=== PATIENT | female | born 1945 | race Caucasian/White ===

== ENCOUNTER 2020-05-18 12:15 | Observation (INO) ==
[2020-05-18] MEDS ORDERED: *HR* OxyCODONE/APAP 5/325 TABLET PO ONE (12:41)
[2020-05-18] MEDS ORDERED: *HR* LORazepam 0.5 MG TABLET PO PRN (14:19)
[2020-05-18] MEDS ORDERED: Naloxone 0.4 MG/ML INJ IVP PRN (14:19)
[2020-05-18 14:31] LABS: Basophils # 0.1 K/mcL (0.0-0.2); Basophils % 0.8 %; Eosinophils # 0.3 K/mcL (0.0-0.6); Eosinophils % 5.1 %; Hematocrit 44.7 % (35.3-44.9); Hemoglobin 14.2 g/dL (11.5-15.4); Immature Granulocytes % 0.5 % (0-4); Lymphocytes # 0.9 K/mcL (0.6-4.6); Mean Corpuscular HGB Conc 31.8 g/dL (31.6-35.5); Mean Corpuscular Hemoglobin 27.6 pg (28.0-33.3); Mean Corpuscular Volume 86.8 fL (83.0-100.0); Mean Platelet Volume 9.5 fL (9.4-12.4); Monocytes # 0.4 K/mcL (0.0-1.3); Monocytes % 6.4 %; Neutrophils # 4.7 K/mcL (1.6-8.9); Platelet Count 216 K/mcL (140-400); Red Blood Count 5.15 M/mcL (3.82-4.97); Red Cell Distribution Width 13.4 % (11.5-14.5); Segmented Neutrophils % 73.2 %; White Blood Count 6.4 K/mcL (4.3-11.1)
[2020-05-18] MEDS ORDERED: Dextrose Gel 15 GM/37.5 ML TUBE PO PRN ×2 (14:34)
[2020-05-18] MEDS ORDERED: *HR* Dextrose 50 % in Water (Vial) 50 ML VIAL IVP PRN (14:34)
[2020-05-18] MEDS ORDERED: D5% in Water 1,000 ML IVC PRN (14:34)
[2020-05-18 14:54] LABS: Prothrombin Time 11.1 Seconds (9.4-12.1)
[2020-05-18 14:56] LABS: BUN/Creatinine Ratio 24 (6-26); Blood Urea Nitrogen 18 mg/dL (8-23); Calcium 9.6 mg/dL (8.6-10.3); Carbon Dioxide 28 mEq/L (23-29); Chloride 102 mEq/L (98-107); Glucose 115 mg/dL (70-105); Osmolality,Calculated 289 (280-300); Potassium 4.1 mEq/L (3.5-5.1); Sodium 138 mEq/L (136-145); eGFR For African Americans > 60 (> 60); eGFR For Non-African Americans > 60 (> 60)
[2020-05-18] MEDS ORDERED: *HR* FentaNYL (PF) 100 MCG/2 ML VIAL IVP ONE (17:08)
[2020-05-18] MEDS: BuPROPion SR (12 HR) 150 MG TABLET PO SCH (20:09)
[2020-05-18] MEDS: *HR* Heparin 5,000 UNIT/ML VIAL SQ SCH (20:09)
[2020-05-18] MEDS ORDERED: Mirtazapine 15 MG TABLET PO SCH (21:00)
[2020-05-18] MEDS ORDERED: Insulin LISPRO 300 UNITS/3 ML VIAL SQ SCH (21:00)
[2020-05-18] MEDS ORDERED: BuPROPion SR (12 HR) 150 MG TABLET PO SCH (21:00)
[2020-05-18] MEDS: Insulin LISPRO 300 UNITS/3 ML VIAL SQ SCH (23:13)
[2020-05-19] MEDS: *HR* Heparin 5,000 UNIT/ML VIAL SQ SCH (06:35)
[2020-05-19] MEDS ORDERED: *HR* Propofol 200 MG/20 ML VIAL IVP ONE (07:46)
[2020-05-19] MEDS ORDERED: Lidocaine -MPF 2% 2 ML VIAL ONE (07:46)
[2020-05-19] MEDS ORDERED: *HR* FentaNYL (PF) 100 MCG/2 ML VIAL ONE (07:46)
[2020-05-19] MEDS ORDERED: Dexamethasone 4 MG/ML VIAL ONE (07:46)
[2020-05-19] MEDS ORDERED: Ondansetron 4 MG/2 ML VIAL ONE (07:46)
[2020-05-19] MEDS ORDERED: *HR* Succinylcholine 200 MG/10 ML VIAL IVP ONE (07:46)
[2020-05-19] MEDS ORDERED: *HR* Rocuronium Bromide 50 MG/5 ML VIAL ONE (07:46)
[2020-05-19] MEDS ORDERED: Acetaminophen IV 1,000 MG/100 ML INFUS..BTL IVPB ONE (07:52)
[2020-05-19] MEDS ORDERED: Famotidine 20 MG/2 ML VIAL IVP ONE ×2 (07:52→10:40)
[2020-05-19] MEDS ORDERED: ROPIVACAINE/PF/NS 0.25% 1 EACH SYRINGE INTRAART ONE (07:53)
[2020-05-19] MEDS ORDERED: Ropivacaine/PF 0.5% 30 ML VIAL ONE (07:53)
[2020-05-19] MEDS: Insulin LISPRO 300 UNITS/3 ML VIAL SQ SCH ×4 (07:54→17:06)
[2020-05-19] MEDS: BuPROPion SR (12 HR) 150 MG TABLET PO SCH ×2 (07:56→20:25)
[2020-05-19] MEDS ORDERED: *HR* Midazolam HCl 2 MG/2 ML VIAL ONE (08:01)
[2020-05-19] MEDS ORDERED: Bupivacaine/EPI 1:200k 0.25%PF 30 ML VIAL ONE (08:46)
[2020-05-19] MEDS ORDERED: EPHEDrine 50 MG/ML VIAL ONE (08:52)
[2020-05-19] MEDS ORDERED: *HR* PHENYLEPHRINE 1,000 MCG/10 ML SYRINGE IVP ONE (08:58)
[2020-05-19] MEDS ORDERED: CeFAZolin 2 GM/120 ML BAG IVPB ONE (09:03)
[2020-05-19] MEDS ORDERED: Ringers Solution, Lactated 1,000 ML IVC SCH (09:15)
[2020-05-19] MEDS ORDERED: *HR* Promethazine 25 MG/ML VIAL IVP PRN (09:50)
[2020-05-19] MEDS ORDERED: *HR* OxyCODONE Immed Rel 5 MG TABLET PO PRN (09:50)
[2020-05-19] MEDS ORDERED: Ondansetron 4 MG/2 ML VIAL IVP ONE (09:50)
[2020-05-19] MEDS ORDERED: Dextrose Gel 15 GM/37.5 ML TUBE PO PRN ×2 (10:40)
[2020-05-19] MEDS ORDERED: D5% in Water 1,000 ML IVC PRN (10:40)
[2020-05-19] MEDS ORDERED: *HR* Dextrose 50 % in Water (Vial) 50 ML VIAL IVP PRN (10:40)
[2020-05-19] MEDS ORDERED: Naloxone 0.4 MG/ML INJ IVP PRN (10:40)
[2020-05-19] MEDS ORDERED: *HR* LORazepam 0.5 MG TABLET PO PRN (10:40)
[2020-05-19] MEDS ORDERED: *HR* OxyCODONE/APAP 5/325 TABLET PO PRN (11:34)
[2020-05-19] MEDS ORDERED: Acetaminophen 325 MG TABLET PO PRN (11:35)
[2020-05-19] MEDS ORDERED: CeFAZolin 2 GM/120 ML BAG IVPB SCH (16:00)
[2020-05-19] MEDS: CeFAZolin 2 GM/120 ML BAG IVPB SCH ×2 (16:25→23:20)
[2020-05-19] MEDS ORDERED: Mirtazapine 15 MG TABLET PO SCH (21:00)
[2020-05-19] MEDS ORDERED: Insulin LISPRO 300 UNITS/3 ML VIAL SQ SCH (21:00)
[2020-05-20 03:41] LABS: Basophils % 0.2 %; Eosinophils % 0.5 %; Hematocrit 40.3 % (35.3-44.9); Hemoglobin 12.5 g/dL (11.5-15.4); Immature Granulocytes % 0.6 % (0-4); Lymphocytes # 0.8 K/mcL (0.6-4.6); Lymphocytes % 9.6 %; Mean Corpuscular Hemoglobin 27.1 pg (28.0-33.3); Mean Corpuscular Volume 87.4 fL (83.0-100.0); Mean Platelet Volume 9.8 fL (9.4-12.4); Monocytes # 0.6 K/mcL (0.0-1.3); Monocytes % 7.4 %; Neutrophils # 6.7 K/mcL (1.6-8.9); Platelet Count 194 K/mcL (140-400); Red Blood Count 4.61 M/mcL (3.82-4.97); Red Cell Distribution Width 13.3 % (11.5-14.5); Segmented Neutrophils % 81.7 %; White Blood Count 8.2 K/mcL (4.3-11.1)
[2020-05-20 04:00] LABS: BUN/Creatinine Ratio 26 (6-26); Blood Urea Nitrogen 18 mg/dL (8-23); Carbon Dioxide 26 mEq/L (23-29); Chloride 103 mEq/L (98-107); Glucose 171 mg/dL (70-105); Osmolality,Calculated 290 (280-300); Sodium 137 mEq/L (136-145); eGFR For African Americans > 60 (> 60); eGFR For Non-African Americans > 60 (> 60)
[2020-05-20] MEDS ORDERED: *HR* Enoxaparin 40 MG/0.4 ML SYRINGE SQ SCH ×3 (06:00→07:55)
[2020-05-20] MEDS: Insulin LISPRO 300 UNITS/3 ML VIAL SQ SCH ×3 (07:29→17:31)
[2020-05-20] MEDS: BuPROPion SR (12 HR) 150 MG TABLET PO SCH (07:34)
[2020-05-20] MEDS: *HR* OxyCODONE/APAP 7.5/325 TABLET PO PRN ×2 (07:40→14:54)
[2020-05-20] MEDS ORDERED: *HR* Rivaroxaban 10 MG TABLET PO ONE (15:00)
[2020-05-20 15:17] VITALS: BP 131/76
== END 2020-05-20 17:55 | disposition home health service (06) ==
LOC: 3NENU 12:15 → EMEROOARM 12:15 → SUATTDRO 16:02 → 3NENU 17:00
PROVIDERS: ADMIT Internal Medicine; ATTEND Internal Medicine